=== PATIENT | male | born 1945 | race Caucasian/White ===

== ENCOUNTER → 2016-12-25 | Outpatient (CLI) | payer OTHER | END | disposition home or self-care (01) | LOC: C.PATHSPEC 13:36 | PROVIDERS: ATTEND Urology | DX: R97.20 Elevated prostate specific antigen [PSA] (principal) ==

== ENCOUNTER → 2017-10-20 | Outpatient (CLI) | payer OTHER ==
[~2017-10-20] MED LIST: GADAVIST IV PRN
--- NOTE | 2017-10-20 15:33 | DIAGNOSTIC IMAGING REPORT ---
PROSTATE MRI COMBO CLINICAL HISTORY: 71 years-old Male presenting with ELEVATED PSA, prior biopsy demonstrating [place] 3+3 at the right apex and right anterior gland. TECHNIQUE: Multisequence, multiplanar MR imaging of the prostate was performed before and after the administration of intravenous contrast. Additional postprocessing was performed on a separate [employer] workstation by the radiologist for 3-D volumetric segmentation of the prostate and contouring of region(s) of interest (GURINDER) for targeting. IV contrast: 7 mL of Gadavist. COMPARISON: None. FINDINGS: Prostate: The prostate measures 4.5 x 3.7 x 4.2 cm(DynaCAD prostate boundary segmentation volume 36 mL). Mild changes of benign prostatic hyperplasia. Precontrast T1 weighted imaging demonstrates no evidence of intrinsic T1 hyperintensity to suggest hemorrhage. No suspicious lesion is apparent in the transition or peripheral zones. Asymmetric atrophy of the left peripheral zone at the prostatic base. This region is hypovascular on early postcontrast imaging and without focal restricted diffusion. Seminal vesicles normal. Bladder: Bladder wall thickening likely indicating chronic outlet obstruction. Bowel: Visualized portion of the rectum normal. Peritoneum: No free fluid in the pelvis. Lymph nodes: No lymphadenopathy in the visualized portion of the pelvis. Vasculature: Iliac vessels patent. Abdominal wall: Normal. Osseous structures: Normal bone marrow signal intensity. IMPRESSION: 1. No suspicious lesion in the transition or peripheral zones for targeted biopsy. 2. Benign prostatic hyperplasia. Electronically signed by: Zander Remy M.D. 10/20/2017 3:31 PM Dictated Date/Time: 10/20/2017 3:06 PM
== END | disposition home or self-care (01) ==
LOC: C.MRIBC 13:15
PROVIDERS: ATTEND Urology
DX: R97.20 Elevated prostate specific antigen [PSA] (principal); N40.0 Benign prostatic hyperplasia without lower urinary tract symptoms